=== PATIENT | female | born 1945 | race Caucasian/White ===

== ENCOUNTER 2021-01-26 19:03 | Emergency (ER) | payer OTHER, MEDICAID ==
[~2021-01-26] VITALS: Ht 165.1 cm; Wt 90.7 kg
[2021-01-26 19:10] VITALS: BP 168/68
[2021-01-26 20:28] LABS: BASOPHILS # (AUTO) 0.1 K/uL (0.00-0.22); BASOPHILS % (AUTO) 1.2 % (0.0-2.0); EOSINOPHILS # (AUTO) 0.1 K/uL (0-0.4); EOSINOPHILS % (AUTO) 1.6 % (0.0-4.0); HEMATOCRIT 39.8 % (36-48); HEMOGLOBIN 13.4 g/dL (12.0-16.0); LYMPHOCYTES # (AUTO) 1.6 K/uL (2.5-16.5); LYMPHOCYTES % (AUTO) 31.1 % (20.5-51.1); MEAN CORPUSCULAR HEMOGLOBIN 30 pg (27-31); MEAN CORPUSCULAR HGB CONC 34 g/dL (33-37); MEAN CORPUSCULAR VOLUME 90.2 fL (80-94); MONOCYTES # (AUTO) 0.6 K/uL (0.8-1.0); MONOCYTES % (AUTO) 11.8 % (1.7-9.3); NEUTROPHILS # (AUTO) 2.7 K/uL (1.8-7.7); NEUTROPHILS % (AUTO) 54.3 % (42.2-75.2); PLATELET COUNT (AUTO) 277 K/uL (140-450); RED BLOOD CELL COUNT(AUTO) 4.42 MIL/uL (4.20-5.40); RED CELL DISTRIBUTION WIDTH 14.1 % (11.6-13.7)
[2021-01-26 20:40] LABS: ALBUMIN 3.4 g/dL (3.4-5.0); ANION GAP 11.9 (8-16); ASPARTATE AMINOTRANSFERASE 15 U/L (15-37); CARBON DIOXIDE 30.5 mmol/L (21-32); CHLORIDE 107 mmol/L (98-107); CREATININE 0.9 mg/dL (0.6-1.3); GLUCOSE 107 mg/dL (74-106); POTASSIUM 4.4 mmol/L (3.5-5.1); SODIUM SERUM 145 mmol/L (136-145); TOTAL BILIRUBIN 0.2 mg/dL (0.0-1.0); UREA NITROGEN, BLOOD 19 mg/dL (7-18)
--- NOTE | 2021-01-26 20:40 | NUR ---
TO ER BED 05
--- NOTE | 2021-01-26 20:50 | NUR ---
PT BIBA ALS FROM [facility] FOR C/C CHEST PAIN X 1 HOUR AGO. PER [facility], PT REPORTED TO FACILITY THAT SHE WAS EXPERIENCING CHEST PAIN 5/10 TO THE LEFT CHEST, NON RADIATING. PER [facility] 12 LEAD EKG NSR HR 81. VSS: BP 168/68, HR 78, O2 98% ROOM AIR, TEMP 98.0. PER FACILITY, PT CURRENTLY COVID NEGATIVE. PT CURRENTLY REPORTS CHEST PAIN HAS SUBSIDED AND DENIES PAIN TO ANY PART OF THE BODY. NO NOTED RESPIRATORY DISTRESS. DENIES N/V/D, FEVER, CHILLS, COUGH. MED HX: DVT LEFT LEG, ELEVATED CHOLESTEROL, ALZHEIMERS, OSTEOPOROSIS, GLAUCOMA ALLERGIES: NKA
--- NOTE | 2021-01-26 22:20 | NUR ---
PT STATED SHE WOULD LIKE TO LEAVE. SONJA DOMÍNGUEZ MADE AWARE, STSTAED HE WOULD LIKE TO DO ANOTHER TROPONIN LEVEL. PT DENIED STATED "NO I WANT TO GET TO MY BED".
[2021-01-27 01:36] VITALS: BP 168/68
--- NOTE | 2021-01-27 01:36 | NUR ---
Patient discharged with v/s stable. Written and verbal after care instructions given and explained. Patient verbalized understanding. Ambulatory with steady gait. All questions addressed prior to discharge. Advised to follow up with PMD. Taxi voucher given. ETA 1 hr.
== END 2021-01-27 01:36 | disposition home or self-care (01) ==
LOC: MED 19:03
DX: R07.9 Chest pain, unspecified (principal); E78.00 Pure hypercholesterolemia, unspecified
CPT/HCPCS: 36415; 71045; 80053; 84484; 85025; 93005; 99285

== ENCOUNTER 2021-05-01 09:33 | Emergency (ER) | payer OTHER, MEDICAID ==
[~2021-05-01] VITALS: Ht 165.1 cm; Wt 122.5 kg
--- NOTE | 2021-05-01 09:33 | NUR ---
SUSANA ALS TO ER BED 9
[2021-05-01 09:40] VITALS: BP 144/77
--- NOTE | 2021-05-01 09:54 | NUR ---
LAB AT BEDSIDE
--- NOTE | 2021-05-01 09:54 | NUR ---
XRAY AT BEDSIDE
--- NOTE | 2021-05-01 10:00 | NUR ---
75 Y/O FEMALE BIBA FROM [facility] C/O MID CHEST PAIN X 2 HOURS AGO. PER EMS GAVE ASPIRIN 325 MG 1 TAB PO. PT STATES PAIN 3/10. O2 SAT 100% AT THIS TIME. DENIES N/V/D; SKIN IS PINK/WARM/DRY; AAOX4 WITH EVEN AND STEADY GAIT; LUNGS CLEAR BL; HR EVEN AND REGULAR; VSS; PATIENT POSITIONED FOR COMFORT; HOB ELEVATED; BEDRAILS UP X2; BED DOWN. ER MD MADE AWARE OF PT STATUS. PMH: GLAUCOMA RIGHT EYE NKA
[2021-05-01 10:13] LABS: EOSINOPHILS # (AUTO) 0.1 K/uL (0-0.4); EOSINOPHILS % (AUTO) 2.3 % (0.0-4.0); HEMATOCRIT 37.1 % (36-48); HEMOGLOBIN 12.6 g/dL (12.0-16.0); LYMPHOCYTES # (AUTO) 1.4 K/uL (2.5-16.5); MEAN CORPUSCULAR HEMOGLOBIN 31 pg (27-31); MEAN CORPUSCULAR HGB CONC 34 g/dL (33-37); MEAN CORPUSCULAR VOLUME 90.7 fL (80-94); MONOCYTES # (AUTO) 0.5 K/uL (0.8-1.0); MONOCYTES % (AUTO) 11.7 % (1.7-9.3); NEUTROPHILS # (AUTO) 2.1 K/uL (1.8-7.7); PLATELET COUNT (AUTO) 281 K/uL (140-450); RED BLOOD CELL COUNT(AUTO) 4.08 MIL/uL (4.20-5.40); RED CELL DISTRIBUTION WIDTH 13.5 % (11.6-13.7); WHITE BLOOD COUNT (AUTO) 4.2 K/uL (4.8-10.8)
[2021-05-01 10:32] LABS: ALBUMIN 3.1 g/dL (3.4-5.0); ANION GAP 9.7 (8-16); ASPARTATE AMINOTRANSFERASE 17 U/L (15-37); CARBON DIOXIDE 27.7 mmol/L (21-32); CHLORIDE 107 mmol/L (98-107); CREATININE 0.9 mg/dL (0.6-1.3); GLUCOSE 92 mg/dL (74-106); POTASSIUM 4.4 mmol/L (3.5-5.1); SODIUM SERUM 140 mmol/L (136-145); TOTAL BILIRUBIN 0.3 mg/dL (0.0-1.0); UREA NITROGEN, BLOOD 20 mg/dL (7-18)
[2021-05-01] MEDS ORDERED: ALUMINUM HYD/MAG/SIMETHICONE 30 ML UDC PO ONE (10:50)
[2021-05-01] MEDS ORDERED: OMEP-278 PO (10:58)
--- NOTE | 2021-05-01 11:18 | NUR ---
PT STATING "I HAVE TO GO BACK, I WANT LUNCH." OFFERED PT A LUNCH TRAY. PT REFUSING OFFER. REORIENTED PT BACK TO BED. PT WALKED OUT OF ER, CALLED SECURITY.
--- NOTE | 2021-05-01 11:19 | NUR ---
PATIENT ELOPED FROM FACILITY. DISCHARGE INSTRUCTIONS NOT GIVEN TO PATIENT. DR. LEACH NOTIFIED.
[2021-05-01 11:25] VITALS: BP 144/77
--- NOTE | 2021-05-01 11:25 | NUR ---
CALLED [facility], FACILITY SPOKE WITH JOVI STATED, "SHE JUST GOT HERE." PT ARRIVED TO [facility]
== END 2021-05-01 11:25 | disposition home or self-care (01) ==
LOC: MED 09:33
DX: K30 Functional dyspepsia (principal); F03.90 Unspecified dementia, unspecified severity, without behavioral disturbance, psychotic disturbance, mood disturbance, and anxiety; Z79.899 Other long term (current) drug therapy
CPT/HCPCS: 36415; 71045; 80053; 83690; 83880; 84484; 85025; 93005; 99285; Q0092

== ENCOUNTER 2022-04-08 13:33 | Emergency (ER) | payer OTHER, MEDICAID ==
[~2022-04-08] VITALS: Ht 162.6 cm; Wt 75.3 kg
[~2022-04-08 13:33] MED LIST: OMEP-278 PO
[2022-04-08 13:39] VITALS: BP 155/78
--- NOTE | 2022-04-08 15:19 | NUR ---
back from rad to annika
--- NOTE | 2022-04-08 15:35 | NUR ---
TO ER BED 4
[2022-04-08 15:42] LABS: BASOPHILS % (AUTO) 0.9 % (0.0-2.0); EOSINOPHILS # (AUTO) 0.1 K/uL (0-0.4); EOSINOPHILS % (AUTO) 1.6 % (0.0-4.0); HEMATOCRIT 39.8 % (36-48); HEMOGLOBIN 13.4 g/dL (12.0-16.0); LYMPHOCYTES # (AUTO) 1.7 K/uL (2.5-16.5); LYMPHOCYTES % (AUTO) 33.2 % (20.5-51.1); MEAN CORPUSCULAR HEMOGLOBIN 31 pg (27-31); MEAN CORPUSCULAR HGB CONC 34 g/dL (33-37); MEAN CORPUSCULAR VOLUME 91.4 fL (80-94); MONOCYTES # (AUTO) 0.7 K/uL (0.8-1.0); MONOCYTES % (AUTO) 13.7 % (1.7-9.3); NEUTROPHILS # (AUTO) 2.5 K/uL (1.8-7.7); NEUTROPHILS % (AUTO) 50.6 % (42.2-75.2); PLATELET COUNT (AUTO) 294 K/uL (140-450); RED BLOOD CELL COUNT(AUTO) 4.35 MIL/uL (4.20-5.40); RED CELL DISTRIBUTION WIDTH 14.2 % (11.6-13.7)
[2022-04-08] MEDS ORDERED: DICYCLOMINE HCL LIQUID 20 MG, ALUMINUM HYD/MAG/SIMETHICONE 30 ML, LIDOCAINE VISCOUS 2% ... PO ONE ×6 (15:50)
[2022-04-08] MEDS ORDERED: ALUMINUM HYD/MAG/SIMETHICONE 30 ML UDC ONE (15:51)
[2022-04-08] MEDS ORDERED: DICYCLOMINE HCL LIQUID 10 MG/5 ML UDC ONE (15:51)
[2022-04-08 16:30] LABS: ALBUMIN 3.1 g/dL (3.4-5.0); ASPARTATE AMINOTRANSFERASE 15 U/L (15-37); CHLORIDE 106 mmol/L (98-107); CREATININE 0.9 mg/dL (0.6-1.3); GLUCOSE 97 mg/dL (74-106); SODIUM SERUM 142 mmol/L (136-145); TOTAL BILIRUBIN 0.2 mg/dL (0.0-1.0); UREA NITROGEN, BLOOD 19 mg/dL (7-18)
[2022-04-08 16:45] LABS: PROTHROMBIN TIME 9.6 secs (10.8-13.4)
[2022-04-08 17:10] VITALS: BP 127/70
--- NOTE | 2022-04-08 17:10 | NUR ---
Patient discharged with v/s stable. Written and verbal after care instructions given and explained. Patient verbalized understanding. Ambulatory with steady gait. All questions addressed prior to discharge. Advised to follow up with PMD.
--- NOTE | 2022-04-08 19:00 | NUR ---
CALLED TO GIVEN REPORT N/A.
== END 2022-04-08 17:10 | disposition home or self-care (01) ==
LOC: MED 13:33
DX: K20.80 Other esophagitis without bleeding (principal); I25.10 Atherosclerotic heart disease of native coronary artery without angina pectoris; F03.90 Unspecified dementia, unspecified severity, without behavioral disturbance, psychotic disturbance, mood disturbance, and anxiety
CPT/HCPCS: 36415; 71045; 80053; 81002; 84484; 85025; 85610; 85730; 93005; 99285; Q0092

== ENCOUNTER 2022-07-30 10:15 | Emergency (ER) | payer OTHER, MEDICAID ==
[~2022-07-30] VITALS: Ht 172.7 cm; Wt 72.6 kg
[2022-07-30 10:19] VITALS: BP 146/53
--- NOTE | 2022-07-30 10:27 | NUR ---
PT SUSANA BERGER, TAKEN TO ER BED VIA [facility]
--- NOTE | 2022-07-30 10:43 | NUR ---
ASSUMED PATIENT CARE. PATIENT NOTED TO BE CONFUSED. PATIENT WAS REQUESTED TO GIVE A URINE SAMPLE BUT URINE CUP WAS FOUND IN THE BATHROOM TRASH CAN INSTEAD. PLACED BACK IN [facility], PATIENT NOW SAYING THAT SHE CAN'T URINATE.
--- NOTE | 2022-07-30 11:08 | NUR ---
PER PORTILLO AT [facility], PT IS CURRENTLY ON SULFA ATBX FOR UTI AND HAS TWO DAYS LEFT
--- NOTE | 2022-07-30 11:45 | NUR ---
PATIENT WAS NOT IN GURNEY/ROOM UPON CONDUCTING SAFETY CHECK. SECURITY PERSONNEL ALERTED. WILL DO A [facility] REVIEW TO INVESTIGATE FURTHER.
--- NOTE | 2022-07-30 12:14 | NUR ---
PER PATIENT WAS VISUALIZED WALKING BACK TO HER FACILITY ACROSS THE STRE[address]. PER BALDO, SHE SPOKE TO PATIENT'S DAUGHTER WHO AGREED TO TAKE HER BACK AND SIT WITH HER IN THE ER.
--- NOTE | 2022-07-30 12:35 | NUR ---
PATIENT ELOPED FROM FACILITY. DISCHARGE INSTRUCTIONS NOT GIVEN TO PATIENT. DR. MORENO NOTIFIED.
[2022-07-30] MEDS ORDERED: ASPI-1749 PO (20:54)
[2022-07-30] MEDS ORDERED: DONE10TA10 PO (20:54)
[2022-07-30] MEDS ORDERED: XALOS OP (20:54)
[2022-07-30] MEDS ORDERED: [UNRECOGNIZED DRUG - CODE] PO (20:54)
[2022-07-30] MEDS ORDERED: DORZ10SO OP (20:54)
[2022-07-30] MEDS ORDERED: ACET325C8 PO (20:54)
[2022-07-30] MEDS ORDERED: BRIM5SOL2 OP (20:54)
[2022-07-30] MEDS ORDERED: FAMO-90 PO (20:54)
[2022-07-30] MEDS ORDERED: ESCI10TA PO (20:54)
[2022-07-30] MEDS ORDERED: CAPS1ADH5 TP (20:55)
[2022-07-30] MEDS ORDERED: MIRABULK PO (20:55)
[2022-07-30] MEDS ORDERED: LOSA25TA43 PO (20:55)
[2022-07-30] MEDS ORDERED: LORA10TA19 PO (20:55)
[2022-07-30] MEDS ORDERED: PROP1DRO5 OP (20:55)
[2022-07-30] MEDS ORDERED: MEMA5TAB PO (20:55)
[2022-07-30] MEDS ORDERED: PRAV40TA3 PO (20:55)
[2022-07-30] MEDS ORDERED: MELA10CA PO (20:55)
[2022-08-02] MEDS ORDERED: NITR100C7 PO (09:27)
== END 2022-07-30 12:35 | disposition left against medical advice (07) ==
LOC: MED 10:15
DX: R82.998 Other abnormal findings in urine (principal); F03.90 Unspecified dementia, unspecified severity, without behavioral disturbance, psychotic disturbance, mood disturbance, and anxiety; Z79.899 Other long term (current) drug therapy
CPT/HCPCS: 99283

== ENCOUNTER 2022-10-03 10:13 | Emergency (ER) | payer OTHER, MEDICAID ==
[~2022-10-03] VITALS: Ht 165.1 cm; Wt 63.5 kg
[~2022-10-03 10:13] MED LIST changes: +ACET325C8 PO; +ASPI-1749 PO; +BRIM5SOL2 OP; +CAPS1ADH5 TP; +DONE10TA10 PO; +DORZ10DR9 OP; +ESCI10TA PO; +FAMO-90 PO; +LORA10TA19 PO; +LOSA25TA43 PO; +MELA10CA PO; +MEMA5TAB PO; +MIRABULK PO; +NITR100C7 PO; -OMEP-278 PO; +PRAV40TA3 PO; +PROP1DRO5 OP; +XALOS OP; +[UNRECOGNIZED DRUG - CODE] PO
[2022-10-03 10:17] VITALS: BP 152/72
--- NOTE | 2022-10-03 10:47 | NUR ---
CONCUR W/ TRIAGE ASSESMENT. 4 PT RESTRAINTS UTILIZED FOR PT SAFETY. COMFORT MEASURES AND SUPPORTIVE CARE INITIATED. PT HAS PMH: DEMENTIA. UNABLE TO PROCESS.
--- NOTE | 2022-10-03 10:59 | NUR ---
SEEN BY DR. SHEARER. ENCOURAGED PT TO PROVIDE URINE IN BEDPAN.
--- NOTE | 2022-10-03 11:33 | NUR ---
AFTER MULTIPLE ATTEMPTS TO ELECIT COOPERATION W/ VOIDING VIA BED JORDAN. ST CATH URINE OBTAINED W/ ASSISTANCE OF RN X2. PT COOPERATED W/ ENCOURAGEMENT. URINE OBTAINED AND SENT TO LAB.
--- NOTE | 2022-10-03 13:10 | NUR ---
PT REFUSING ALL VITAL SIGNS CHECKS. PT NOTED TO YELL OBSCENITIES AND BECOME FOUL IN DISPOSITION TOWARD ALL HEALTHCARE STAFF.
[2022-10-03 13:42] LABS: APPEARANCE,URINE CLEAR (CLEAR); BILIRUBIN,URINE NEGATIVE (NEGATIVE); BLOOD, URINE NEGATIVE (NEGATIVE); COLOR,URINE YELLOW (YELLOW); LEUKOCYTE ESTERASE ,URINE NEGATIVE (NEGATIVE); NITRITE, URINE NEGATIVE (NEGATIVE); UGLUCOSE NEGATIVE (NEGATIVE)
[2022-10-03] MEDS ORDERED: CEPH-588 PO (13:47)
[2022-10-03] MEDS ORDERED: FLUC200T PO (13:47)
--- NOTE | 2022-10-03 13:53 | NUR ---
GAVE REPORT TO PORTILLO AT [facility] OF PATIENT'S DC STATUS. PENDING TRANSPORT BACK TO FACILITY
[2022-10-03 13:55] VITALS: BP 141/78
--- NOTE | 2022-10-03 13:55 | NUR ---
Patient discharged with v/s stable. Written and verbal after care instructions given and explained. Patient alert, oriented and verbalized understanding of instructions. Ambulatory with by caregiver. All questions addressed prior to discharge. ID band removed. Patient advised to follow up with PMD. Rx given. Patient educated on indication of medication including possible reaction and side effects. Opportunity to ask questions provided and answered.
== END 2022-10-03 13:55 ==
LOC: MED 10:13
DX: L30.4 Erythema intertrigo (principal); B37.2 Candidiasis of skin and nail; F03.90 Unspecified dementia, unspecified severity, without behavioral disturbance, psychotic disturbance, mood disturbance, and anxiety; Z86.39 Personal history of other endocrine, nutritional and metabolic disease; Z79.899 Other long term (current) drug therapy; Z79.2 Long term (current) use of antibiotics; Z79.82 Long term (current) use of aspirin
CPT/HCPCS: 81003; 99283

== ENCOUNTER 2022-10-27 16:36 | Inpatient (IN) | payer OTHER, MEDICAID ==
[~2022-10-27] VITALS: Ht 167.6 cm; Wt 94.8 kg
[~2022-10-27 16:36] MED LIST changes: +CEPH-588 PO; +FLUC200T PO
[2022-10-27 17:05] VITALS: BP 139/85
--- NOTE | 2022-10-27 17:19 | NUR ---
TO TX ROOM. PREP FOR ERMD EVAL. COMFORT MEASURES AND SUPPORTIVE CARE INITIATED. DAUGHTER AT BS. JENNIFER LEACH AT BS.
--- NOTE | 2022-10-27 17:41 | NUR ---
76 YEARS OLD FEMALE PRESENTS TO ER WITH DAUGHTER C/O SHAKINESS NO SOB NO CP.
[2022-10-27] MEDS ORDERED: NACL 0.9% 1,000 ML IV ONE ×3 (18:05→23:45)
--- NOTE | 2022-10-27 18:25 | NUR ---
PATIENT WENT TO CT.
[2022-10-27 18:33] LABS: BASOPHILS % (AUTO) 0.9 % (0.0-2.0); EOSINOPHILS # (AUTO) 0.1 K/uL (0-0.4); EOSINOPHILS % (AUTO) 2.3 % (0.0-4.0); HEMATOCRIT 37.3 % (36-48); HEMOGLOBIN 12.4 g/dL (12.0-16.0); LYMPHOCYTES # (AUTO) 1.2 K/uL (2.5-16.5); LYMPHOCYTES % (AUTO) 26.6 % (20.5-51.1); MEAN CORPUSCULAR HEMOGLOBIN 30 pg (27-31); MEAN CORPUSCULAR HGB CONC 33 g/dL (33-37); MEAN CORPUSCULAR VOLUME 90.5 fL (80-94); MONOCYTES # (AUTO) 0.4 K/uL (0.8-1.0); MONOCYTES % (AUTO) 9.8 % (1.7-9.3); NEUTROPHILS # (AUTO) 2.8 K/uL (1.8-7.7); NEUTROPHILS % (AUTO) 60.4 % (42.2-75.2); PLATELET COUNT (AUTO) 220 K/uL (140-450); RED BLOOD CELL COUNT(AUTO) 4.12 MIL/uL (4.20-5.40); RED CELL DISTRIBUTION WIDTH 13.7 % (11.6-13.7); WHITE BLOOD COUNT (AUTO) 4.5 K/uL (4.8-10.8)
[2022-10-27 18:49] LABS: ASPARTATE AMINOTRANSFERASE 17 U/L (15-37); CARBON DIOXIDE 25.3 mmol/L (21-32); CHLORIDE 108 mmol/L (98-107); CREATININE 1.4 mg/dL (0.6-1.3); GLUCOSE 140 mg/dL (74-106); POTASSIUM 4.3 mmol/L (3.5-5.1); SODIUM SERUM 143 mmol/L (136-145); TOTAL BILIRUBIN 0.3 mg/dL (0.0-1.0); UREA NITROGEN, BLOOD 15 mg/dL (7-18)
--- NOTE | 2022-10-27 19:17 | NUR ---
REPORT ENDORSED TO NURSE MITCH ALL QUESTIONS ANSWERED. VSS. NO PAIN
[2022-10-27 19:29] LABS: APPEARANCE,URINE CLEAR (CLEAR); BILIRUBIN,URINE NEGATIVE (NEGATIVE); BLOOD, URINE NEGATIVE (NEGATIVE); COLOR,URINE YELLOW (YELLOW); LEUKOCYTE ESTERASE ,URINE NEGATIVE (NEGATIVE); NITRITE, URINE NEGATIVE (NEGATIVE); PH,URINE 6.5 (5.0-9.0); UGLUCOSE NEGATIVE (NEGATIVE)
--- NOTE | 2022-10-27 20:35 | NUR ---
ER DR. Mccoy by bedside at this time.
--- NOTE | 2022-10-27 20:47 | NUR ---
Pt assisted to restroom, accompanied by daughter. Gait steady.
[2022-10-27] MEDS ORDERED: VANCOMYCIN 1,000 MG in DEXTROSE 5% 250 ML IV ONE (21:45)
[2022-10-27] MEDS ORDERED: CEFEPIME 2,000 MG in DEXTROSE 5% 100 ML IV ONE (21:45)
[2022-10-27] MEDS ORDERED: CEFEPIME 2,000 MG VIAL IV ONE (22:30)
[2022-10-27] MEDS ORDERED: QUEtiapine FUMARATE 25 MG TAB PO ONE (22:30)
[2022-10-27] MEDS ORDERED: POTASSIUM CHLORIDE 10 MEQ TABER PO PRN (23:25)
[2022-10-27] MEDS ORDERED: ZOLPIDEM 5 MG TAB PO PRN (23:25)
[2022-10-27] MEDS ORDERED: ACETAMINOPHEN 325 MG TAB PO PRN (23:25)
[2022-10-27] MEDS ORDERED: HYDROcodone/APAP 7.5/325 MG 1 TAB PO PRN (23:25)
[2022-10-27] MEDS: NACL 0.9% 1,000 ML IV SCH (23:25)
[2022-10-27] MEDS ORDERED: guaiFENesin DM 200/20 MG-10 ML 10 ML UDC PO PRN (23:25)
[2022-10-27] MEDS ORDERED: DOCUSATE SODIUM 100 MG GELCAP PO PRN (23:25)
[2022-10-27] MEDS ORDERED: ONDANSETRON 4 MG/2 ML VIAL IM/IVP PRN (23:25)
--- NOTE | 2022-10-27 23:31 | NUR ---
MED RECONCILE COMPLETED
[2022-10-27] MEDS ORDERED: VANCOMYCIN PER PHARMACY MC PRN (23:35)
--- NOTE | 2022-10-27 23:56 | NUR ---
Report given to Errol MEYERS
--- NOTE | 2022-10-28 00:10 | NUR ---
[facility], PATIENT IS ALERT WITH CONFUSION, ABLE TO AMBULATE WITH ASSISTANCE. ADMITTED DUE TO SOB AND ALOC, PIV INTACT AND PATENT. WILL CONTINUE TO MONITOR
[2022-10-28] MEDS ORDERED: VANCOMYCIN 1,000 MG VIAL ONE (00:42)
[2022-10-28 04:00] VITALS: BP 139/60
[2022-10-28 07:05] LABS: BASOPHILS % (AUTO) 0.4 % (0.0-2.0); EOSINOPHILS % (AUTO) 0.3 % (0.0-4.0); HEMATOCRIT 37.7 % (36-48); HEMOGLOBIN 12.4 g/dL (12.0-16.0); LYMPHOCYTES # (AUTO) 1.1 K/uL (2.5-16.5); LYMPHOCYTES % (AUTO) 11.4 % (20.5-51.1); MEAN CORPUSCULAR HEMOGLOBIN 30 pg (27-31); MEAN CORPUSCULAR HGB CONC 33 g/dL (33-37); MEAN CORPUSCULAR VOLUME 90.3 fL (80-94); MONOCYTES # (AUTO) 0.8 K/uL (0.8-1.0); MONOCYTES % (AUTO) 8.8 % (1.7-9.3); NEUTROPHILS # (AUTO) 7.6 K/uL (1.8-7.7); NEUTROPHILS % (AUTO) 79.1 % (42.2-75.2); PLATELET COUNT (AUTO) 199 K/uL (140-450); RED BLOOD CELL COUNT(AUTO) 4.18 MIL/uL (4.20-5.40); RED CELL DISTRIBUTION WIDTH 13.8 % (11.6-13.7); WHITE BLOOD COUNT (AUTO) 9.6 K/uL (4.8-10.8)
[2022-10-28 07:31] LABS: ANION GAP 11.8 (8-16); CARBON DIOXIDE 25.3 mmol/L (21-32); CHLORIDE 112 mmol/L (98-107); GLUCOSE 120 mg/dL (74-106); POTASSIUM 4.1 mmol/L (3.5-5.1); SODIUM SERUM 145 mmol/L (136-145); UREA NITROGEN, BLOOD 17 mg/dL (7-18)
--- NOTE | 2022-10-28 07:46 | NUR ---
GOT REPORT FROM THE NIGHT NURSE, PT AWAKE JUST USED THE COMMODE , NO SOB.[id number]
[2022-10-28 08:00] VITALS: BP 128/61
[2022-10-28] MEDS: PANTOPRAZOLE 40 MG TABEC PO SCH (08:58)
[2022-10-28] MEDS: PIPERACILLIN/TAZOBACTAM 3.375 GM in DEXTROSE 5% 50 ML IV SCH ×3 (09:01→16:55)
[2022-10-28] MEDS ORDERED: POLYETHYLENE GLYCOL 17 GM/PKT PO PRN ×2 (09:55→11:46)
[2022-10-28 16:00] VITALS: BP 143/65
[2022-10-28] MEDS: NACL 0.9% 1,000 ML IV SCH (16:05)
[2022-10-28] MEDS ORDERED: DONEPEZIL 10 MG TAB PO SCH (17:00)
--- NOTE | 2022-10-28 19:26 | NUR ---
GAVE REPORT TO THE NIGHT NURSE, PT DEMETRIO.[id number]
--- NOTE | 2022-10-28 19:30 | NUR ---
RECEIVED REPORT FROM DAY SHIFT NURSE AMBER AND ORIENTING NURSE RANDEE FOR CONTINUITY OF CARE. PATIENT IS A&O X2, CONFUSED. PATIENT IS ON ROOM AIR, BREATHING IS NORMAL WITH SYMMETRICAL RISE AND FALL OF CHEST. IV IS A 24G R HAND RUNNING NS AT 60. PATIENT IS LYING IN SEMI-FOWLERS POSITION, AWAKE. BED IS IN LOWEST POSITION, WHEELS LOCKED, CALL LIGHT IN PLACE. WILL CONTINUE TO OBSERVE PATIENT.
[2022-10-28 20:00] VITALS: BP 152/56
--- NOTE | 2022-10-29 00:50 | NUR ---
PATIENT HAS GOTTEN UP MULTIPLE TIMES TO USE THE COMMODE AT HER BEDSIDE. PATIENT IS STILL CONFUSED AND NEEDS REORIENTING AND ASSISTANCE TO GET BACK INTO BED. PATIENT IS GOING SCANT AMOUNTS OF STOOL WHICH IS LIGHT BROWN IN COLOR. PATIENT IS SLEEPING IN BED. BED ALARM IS ON. BREATHING IS NORMAL WITH SYMMETRICAL RISE AND FALL OF CHEST. WILL CONTINUE TO OBSERVE PATIENT.
[2022-10-29] MEDS ORDERED: VANCOMYCIN 1.25GM PREMIX 250 ML IV SCH (01:00)
[2022-10-29] MEDS: NACL 0.9% 1,000 ML IV SCH (01:42)
[2022-10-29 04:00] VITALS: BP 140/58
--- NOTE | 2022-10-29 05:00 | NUR ---
PATIENT SLEPT OFF AND ON THROUGHOUT THE NIGHT, GETTING UP FREQUENTLY TO USE THE COMMODE (4 VOIDS, 6 BOWEL MOVEMENTS). PATIENT'S IV IS PATENT AND STILL RUNNING. PATIENT STILL GETS CONFUSED NEEDING ASSISTANCE TO GET BACK INTO BED WITHOUT GETTING TANGLED UP IN HER IV. PATIENT STARTED WIPING HERSELF DURING THE NIGHT WITHOUT ASSISTANCE, AND WANTED TO PUT ON HOSPITAL UNDERWEAR (UNDERWEAR WAS PUT ON WITH ASSISTANCE BECAUSE PATIENT KEPT GETTING IV LINE TANGLED IN BETWEEN LEGS AND UNDERWEAR. BM IS STARTING TO LOOK BIGGER AND MORE FORMED FROM EARLIER IN THE NIGHT. PATIENT IS SLEEPING, BREATHING IS NORMAL WITH SYMMETRICAL RISE AND FALL OF CHEST. WILL CONTINUE TO OBSERVE PATIENT.
[2022-10-29 06:52] LABS: ANION GAP 12.3 (8-16); CARBON DIOXIDE 23.3 mmol/L (21-32); CHLORIDE 110 mmol/L (98-107); CREATININE 0.8 mg/dL (0.6-1.3); GLUCOSE 91 mg/dL (74-106); POTASSIUM 3.6 mmol/L (3.5-5.1); SODIUM SERUM 142 mmol/L (136-145); UREA NITROGEN, BLOOD 12 mg/dL (7-18)
[2022-10-29 06:57] LABS: BASOPHILS # (AUTO) 0.1 K/uL (0.00-0.22); BASOPHILS % (AUTO) 0.8 % (0.0-2.0); EOSINOPHILS # (AUTO) 0.1 K/uL (0-0.4); EOSINOPHILS % (AUTO) 1.2 % (0.0-4.0); HEMATOCRIT 35.8 % (36-48); HEMOGLOBIN 12.3 g/dL (12.0-16.0); LYMPHOCYTES # (AUTO) 1.6 K/uL (2.5-16.5); LYMPHOCYTES % (AUTO) 18.6 % (20.5-51.1); MEAN CORPUSCULAR HEMOGLOBIN 30 pg (27-31); MEAN CORPUSCULAR HGB CONC 34 g/dL (33-37); MEAN CORPUSCULAR VOLUME 88.5 fL (80-94); MONOCYTES % (AUTO) 11.2 % (1.7-9.3); NEUTROPHILS # (AUTO) 5.9 K/uL (1.8-7.7); NEUTROPHILS % (AUTO) 68.2 % (42.2-75.2); PLATELET COUNT (AUTO) 226 K/uL (140-450); RED BLOOD CELL COUNT(AUTO) 4.05 MIL/uL (4.20-5.40); RED CELL DISTRIBUTION WIDTH 13.9 % (11.6-13.7); WHITE BLOOD COUNT (AUTO) 8.7 K/uL (4.8-10.8)
--- NOTE | 2022-10-29 07:21 | NUR ---
ENDORSED TO DAY SHIFT NURSE AMBER FOR CONTINUITY OF CARE. PATIENT IS STABLE.
--- NOTE | 2022-10-29 07:22 | NUR ---
RECEIVED ENDORSEMENT FROM DATA REVIEW SPECIALIST FOR CONTINUITY OF CARE. PT IS ASLEEP, AWAKEN BY NAME. CALL LIGHT WITHIN REACH. WILL CONTINUE TO MONITOR.
[2022-10-29 08:00] VITALS: BP 131/6
[2022-10-29] MEDS: ASPIRIN 81 MG TAB.CHEW PO SCH ×2 (08:27→08:38)
[2022-10-29] MEDS: PANTOPRAZOLE 40 MG TABEC PO SCH (08:29)
[2022-10-29] MEDS ORDERED: ESCITALOPRAM 20 MG TAB PO SCH (09:00)
[2022-10-29] MEDS ORDERED: MEMANTINE 10 MG TAB PO SCH (09:00)
[2022-10-29] MEDS ORDERED: LOSARTAN 25 MG TAB PO SCH (09:00)
--- NOTE | 2022-10-29 10:31 | NUR ---
PATIENT HAS BEEN SCREENED AND CATEGORIZED LOW NUTRITION RISK. PATIENT WILL BE SEEN WITHIN 7 DAYS OF ADMISSION. 11/03/[address]
[2022-10-29 11:57] VITALS: BP 131/66
--- NOTE | 2022-10-29 12:59 | NUR ---
PT DISCHARGED, [facility] PICKED PT UP. CALLED [facility] FOR ENDORSEMENT AND CONTINUITY OF CARE. CALLED DAUGHTER AND INFORMED OF THE UPDATE ON THE PT. Addendum: 10/29/22 at 1308 by MURIEL VELEZ RN PT DISCHARGED, [facility]. CALLED [facility] FOR ENDORSEMENT AND CONTINUITY OF CARE. CALLED DAUGHTER AND INFORMED OF THE UPDATE ON THE PT. TOOK THE IV OUT.
[2022-10-29] MEDS ORDERED: PIPERACILLIN/TAZOBACTAM 3.375 GM in DEXTROSE 5% 50 ML IV SCH (13:00)
== END 2022-10-29 12:55 | DRG 56 ==
LOC: MED 16:36 → MTU 23:23
PROVIDERS: ADMIT Student in an Organized Health Care Education/Training Program; ATTEND Student in an Organized Health Care Education/Training Program
DX: G30.9 Alzheimer's disease, unspecified (principal); G93.41 Metabolic encephalopathy; N17.0 Acute kidney failure with tubular necrosis; E87.20 Acidosis, unspecified; E44.0 Moderate protein-calorie malnutrition; E78.5 Hyperlipidemia, unspecified; I10 Essential (primary) hypertension; Z20.822 Contact with and (suspected) exposure to COVID-19; F02.80 Dementia in other diseases classified elsewhere, unspecified severity, without behavioral disturbance, psychotic disturbance, mood disturbance, and anxiety; Z79.899 Other long term (current) drug therapy; Z90.49 Acquired absence of other specified parts of digestive tract; Z79.82 Long term (current) use of aspirin; Z79.1 Long term (current) use of non-steroidal anti-inflammatories (NSAID); Z68.33 Body mass index [BMI] 33.0-33.9, adult
CPT/HCPCS: 36415; 70450; 71045; 74022; 80048; 80053; 81003; 82550; 83605; 83880; 84484; 85025; 87040; 87081; 93005; 96361; 96365; 99291; J0692; J1644; J2543; J3370; J3372; J7060

== ENCOUNTER 2022-11-07 13:28 | Emergency (ER) | payer OTHER, MEDICAID ==
[~2022-11-07] VITALS: Ht 165.1 cm; Wt 70.3 kg
[~2022-11-07 13:28] MED LIST changes: -CEPH-588 PO; -NITR100C7 PO
--- NOTE | 2022-11-07 13:33 | NUR ---
76 yo/f oli from [facility] w c/o fall after losing balance in the bathroom and hitting back of head, pt c/o headache and neck pain /10. pt denies chest pain, sob, fevers, chills, n/v/d, loc, dizziness or other symptoms. pt aox3 (baseline per [facility]). pt reports she has not taken her aspirin but is unsure of last time she took it. pmh:htn, anxiety, dementia (see chart) allergies: penicillins
--- NOTE | 2022-11-07 13:33 | NUR ---
Note undone in EDM - 11/07/22 at 1347 by [id number] 76 yo/f oli from [facility] w c/o fall after losing balance in the bathroom and hitting back of head, pt c/o headache /10. pt denies chest pain, sob, fevers, chills, n/v/d, dizziness or other symptoms. pt aox3 (baseline per [facility]). pmh:htn, anxiety, dementia (see chart) allergies: penicillins
[2022-11-07 13:36] VITALS: BP 122/40
[2022-11-07 14:59] LABS: BASOPHILS % (AUTO) 0.7 % (0.0-2.0); EOSINOPHILS # (AUTO) 0.1 K/uL (0-0.4); HEMATOCRIT 37.2 % (36-48); HEMOGLOBIN 12.5 g/dL (12.0-16.0); LYMPHOCYTES # (AUTO) 0.8 K/uL (2.5-16.5); LYMPHOCYTES % (AUTO) 11.1 % (20.5-51.1); MEAN CORPUSCULAR HEMOGLOBIN 30 pg (27-31); MEAN CORPUSCULAR HGB CONC 34 g/dL (33-37); MEAN CORPUSCULAR VOLUME 90.2 fL (80-94); MONOCYTES # (AUTO) 0.7 K/uL (0.8-1.0); MONOCYTES % (AUTO) 9.4 % (1.7-9.3); NEUTROPHILS # (AUTO) 5.6 K/uL (1.8-7.7); NEUTROPHILS % (AUTO) 77.8 % (42.2-75.2); PLATELET COUNT (AUTO) 274 K/uL (140-450); RED BLOOD CELL COUNT(AUTO) 4.12 MIL/uL (4.20-5.40); RED CELL DISTRIBUTION WIDTH 14.3 % (11.6-13.7); WHITE BLOOD COUNT (AUTO) 7.2 K/uL (4.8-10.8)
[2022-11-07 15:18] LABS: ALBUMIN 2.8 g/dL (3.4-5.0); ANION GAP 11.5 (8-16); ASPARTATE AMINOTRANSFERASE 22 U/L (15-37); CARBON DIOXIDE 29.5 mmol/L (21-32); CHLORIDE 107 mmol/L (98-107); CREATININE 1.1 mg/dL (0.6-1.3); GLUCOSE 114 mg/dL (74-106); SODIUM SERUM 144 mmol/L (136-145); TOTAL BILIRUBIN 0.4 mg/dL (0.0-1.0); UREA NITROGEN, BLOOD 16 mg/dL (7-18)
[2022-11-07 15:35] VITALS: BP 122/58
--- NOTE | 2022-11-07 16:08 | NUR ---
PT DENIES ONGOING SERINA NOR OTHER SYMPTOMS, VSS. PT UP FOR DISCHARGE, AWAITING TRANSPORT.
--- NOTE | 2022-11-07 16:59 | NUR ---
PT ATE A SANDWICH, RESTING IN BED NOW, AWAITING TRANSPORT.
--- NOTE | 2022-11-07 18:00 | NUR ---
[facility] AT BEDSIDE
--- NOTE | 2022-11-07 18:06 | NUR ---
Patient discharged with v/s stable. Written and verbal after care instructions FOR FALL PREVENTION IN THE HOME given and explained. Patient verbalized understanding. [facility] to snf. All questions addressed prior to discharge. Advised to follow up with PMD.
== END 2022-11-07 18:06 ==
LOC: MED 13:28
DX: S09.90XA Unspecified injury of head, initial encounter (principal); F03.90 Unspecified dementia, unspecified severity, without behavioral disturbance, psychotic disturbance, mood disturbance, and anxiety; E03.9 Hypothyroidism, unspecified; I10 Essential (primary) hypertension; Z79.899 Other long term (current) drug therapy; W18.30XA Fall on same level, unspecified, initial encounter; Y93.89 Activity, other specified; Y92.89 Other specified places as the place of occurrence of the external cause; Y99.8 Other external cause status
CPT/HCPCS: 36415; 70450; 72125; 72170; 80053; 84484; 85025; 93005; 99285; Q0092

== ENCOUNTER 2022-11-21 11:29 | Inpatient (IN) | payer OTHER, MEDICAID ==
[~2022-11-21] VITALS: Ht 165.1 cm; Wt 70.3 kg
[2022-11-21 11:34] VITALS: BP 113/53
[2022-11-21] MEDS ORDERED: NACL 0.9% 500 ML IV ONE (11:50)
[2022-11-21 13:13] LABS: BASOPHILS # (AUTO) 0.1 K/uL (0.00-0.22); BASOPHILS % (AUTO) 0.9 % (0.0-2.0); EOSINOPHILS # (AUTO) 0.1 K/uL (0-0.4); EOSINOPHILS % (AUTO) 1.5 % (0.0-4.0); HEMATOCRIT 39.7 % (36-48); HEMOGLOBIN 13.2 g/dL (12.0-16.0); LYMPHOCYTES # (AUTO) 1.1 K/uL (2.5-16.5); LYMPHOCYTES % (AUTO) 17.1 % (20.5-51.1); MEAN CORPUSCULAR HEMOGLOBIN 30 pg (27-31); MEAN CORPUSCULAR HGB CONC 33 g/dL (33-37); MEAN CORPUSCULAR VOLUME 91.6 fL (80-94); MONOCYTES # (AUTO) 0.6 K/uL (0.8-1.0); MONOCYTES % (AUTO) 10.1 % (1.7-9.3); NEUTROPHILS # (AUTO) 4.4 K/uL (1.8-7.7); NEUTROPHILS % (AUTO) 70.4 % (42.2-75.2); PLATELET COUNT (AUTO) 239 K/uL (140-450); RED BLOOD CELL COUNT(AUTO) 4.34 MIL/uL (4.20-5.40); RED CELL DISTRIBUTION WIDTH 14.4 % (11.6-13.7); WHITE BLOOD COUNT (AUTO) 6.3 K/uL (4.8-10.8)
[2022-11-21 13:40] LABS: ASPARTATE AMINOTRANSFERASE 21 U/L (15-37); CARBON DIOXIDE 31.3 mmol/L (21-32); CHLORIDE 108 mmol/L (98-107); CREATININE 1.3 mg/dL (0.6-1.3); GLUCOSE 123 mg/dL (74-106); POTASSIUM 4.3 mmol/L (3.5-5.1); SODIUM SERUM 145 mmol/L (136-145); TOTAL BILIRUBIN 0.4 mg/dL (0.0-1.0); UREA NITROGEN, BLOOD 24 mg/dL (7-18)
[2022-11-21] MEDS ORDERED: NACL 0.9% 1,000 ML IV ONE (15:05)
[2022-11-21] MEDS ORDERED: LORazepam 2 MG/ML VIAL ONE (16:54)
[2022-11-21] MEDS ORDERED: LORazepam 2 MG/ML VIAL IVP ONE (16:55)
[2022-11-21] MEDS ORDERED: QUEtiapine FUMARATE 25 MG TAB PO ONE (16:55)
[2022-11-21] MEDS ORDERED: QUEtiapine FUMARATE 25 MG TAB ONE (16:59)
[2022-11-21 17:15] LABS: APPEARANCE,URINE CLEAR (CLEAR); BILIRUBIN,URINE NEGATIVE (NEGATIVE); BLOOD, URINE NEGATIVE (NEGATIVE); COLOR,URINE YELLOW (YELLOW); LEUKOCYTE ESTERASE ,URINE TRACE (NEGATIVE); NITRITE, URINE NEGATIVE (NEGATIVE); PH,URINE 7.5 (5.0-9.0); UGLUCOSE NEGATIVE (NEGATIVE)
[2022-11-21 17:38] LABS: RBC,URINE 0-5 /HPF (0-5)
[2022-11-21] MEDS ORDERED: cefTRIAXone 1,000 MG VIAL ONE (17:43)
[2022-11-21] MEDS ORDERED: ONDANSETRON 4 MG/2 ML VIAL IVP PRN (18:00)
[2022-11-21] MEDS ORDERED: HYDROcodone/APAP 5/325 MG 1 TAB TAB PO PRN ×2 (18:00)
[2022-11-21] MEDS ORDERED: RENAL DOSING PER PHARMACY MC PRN (18:10)
[2022-11-21] MEDS ORDERED: DONEPEZIL 10 MG TAB PO SCH (21:00)
[2022-11-21] MEDS ORDERED: FAMOTIDINE 20 MG TAB PO SCH (21:00)
[2022-11-22] VITALS: BP 129/52
[2022-11-22 06:44] LABS: BASOPHILS # (AUTO) 0.1 K/uL (0.00-0.22); BASOPHILS % (AUTO) 1.1 % (0.0-2.0); EOSINOPHILS # (AUTO) 0.1 K/uL (0-0.4); EOSINOPHILS % (AUTO) 1.5 % (0.0-4.0); HEMATOCRIT 37.7 % (36-48); HEMOGLOBIN 12.6 g/dL (12.0-16.0); LYMPHOCYTES # (AUTO) 1.4 K/uL (2.5-16.5); LYMPHOCYTES % (AUTO) 22.5 % (20.5-51.1); MEAN CORPUSCULAR HEMOGLOBIN 31 pg (27-31); MEAN CORPUSCULAR HGB CONC 33 g/dL (33-37); MEAN CORPUSCULAR VOLUME 91.7 fL (80-94); MONOCYTES # (AUTO) 0.8 K/uL (0.8-1.0); MONOCYTES % (AUTO) 12.4 % (1.7-9.3); NEUTROPHILS % (AUTO) 62.5 % (42.2-75.2); PLATELET COUNT (AUTO) 266 K/uL (140-450); RED BLOOD CELL COUNT(AUTO) 4.11 MIL/uL (4.20-5.40); RED CELL DISTRIBUTION WIDTH 14.6 % (11.6-13.7); WHITE BLOOD COUNT (AUTO) 6.4 K/uL (4.8-10.8)
[2022-11-22 07:11] LABS: ANION GAP 12.4 (8-16); CARBON DIOXIDE 24.9 mmol/L (21-32); CHLORIDE 109 mmol/L (98-107); CREATININE 0.8 mg/dL (0.6-1.3); GLUCOSE 99 mg/dL (74-106); POTASSIUM 4.3 mmol/L (3.5-5.1); SODIUM SERUM 142 mmol/L (136-145); UREA NITROGEN, BLOOD 22 mg/dL (7-18)
[2022-11-22] MEDS ORDERED: LORazepam 2 MG/ML VIAL ONE (07:58)
[2022-11-22 08:00] VITALS: BP 129/69
[2022-11-22] MEDS ORDERED: LORazepam 2 MG/ML VIAL IM/IVP SCH (08:03)
[2022-11-22] MEDS ORDERED: ENOXAPARIN 40 MG/0.4 ML SYR SUBQ SCH (09:00)
[2022-11-22] MEDS ORDERED: LOSARTAN 25 MG TAB PO SCH (09:00)
[2022-11-22] MEDS ORDERED: ASPIRIN 81 MG TAB.CHEW PO SCH (09:00)
[2022-11-22] MEDS ORDERED: ESCITALOPRAM 20 MG TAB PO SCH (09:00)
[2022-11-22] MEDS ORDERED: MEMANTINE 10 MG TAB PO SCH (09:00)
[2022-11-22] MEDS ORDERED: CEPH-588 PO (09:13)
== END 2022-11-22 10:10 | disposition home or self-care (01) | DRG 871 ==
LOC: MED 11:29 → MMU 18:01 → MTU 19:11
PROVIDERS: ADMIT Internal Medicine; ATTEND Internal Medicine
DX: A41.9 Sepsis, unspecified organism (principal); G93.41 Metabolic encephalopathy; N39.0 Urinary tract infection, site not specified; E87.20 Acidosis, unspecified; Z20.822 Contact with and (suspected) exposure to COVID-19; E86.0 Dehydration; E11.9 Type 2 diabetes mellitus without complications; Z88.0 Allergy status to penicillin; I95.9 Hypotension, unspecified
CPT/HCPCS: 36415; 71045; 80048; 80053; 81001; 83605; 83735; 83880; 84484; 85025; 87040; 87086; 93005; 96361; 96365; 96375; 99291; J0696; J1650; J2060; J7030; J7060; Q0092

== ENCOUNTER 2022-11-27 07:55 | Emergency (ER) | payer OTHER, MEDICAID ==
[~2022-11-27] VITALS: Ht 160 cm; Wt 68.0 kg
[~2022-11-27 07:55] MED LIST changes: +CEPH-588 PO
[2022-11-27 07:57] VITALS: BP 116/78
--- NOTE | 2022-11-27 08:11 | NUR ---
08:00 [facility], BLS , BROUGHT PATIENT TO BED 07
--- NOTE | 2022-11-27 08:19 | NUR ---
Pt bib bls for "flu like symptoms". Pt denies pain, fever, cough, or any issues on arrival. Pt is a/o x 2 (person, place only. said to be normal for pt), vss, no ss of acute distress, breathing equal and unlabored, speech clear, no complaints at this time. Pt in bed 7 in view of nursing station.
[2022-11-27] MEDS ORDERED: QUEtiapine FUMARATE 25 MG TAB PO ONE (08:40)
[2022-11-27 09:25] LABS: ALBUMIN 3.4 g/dL (3.4-5.0); ANION GAP 14.3 (8-16); ASPARTATE AMINOTRANSFERASE 17 U/L (15-37); CARBON DIOXIDE 23.9 mmol/L (21-32); CHLORIDE 105 mmol/L (98-107); CREATININE 1.4 mg/dL (0.6-1.3); GLUCOSE 102 mg/dL (74-106); POTASSIUM 4.2 mmol/L (3.5-5.1); SODIUM SERUM 139 mmol/L (136-145); TOTAL BILIRUBIN 0.5 mg/dL (0.0-1.0); UREA NITROGEN, BLOOD 26 mg/dL (7-18)
[2022-11-27 10:19] LABS: BASOPHILS % (AUTO) 0.8 % (0.0-2.0); EOSINOPHILS % (AUTO) 0.8 % (0.0-4.0); HEMOGLOBIN 11.7 g/dL (12.0-16.0); LYMPHOCYTES # (AUTO) 0.7 K/uL (2.5-16.5); LYMPHOCYTES % (AUTO) 14.4 % (20.5-51.1); MEAN CORPUSCULAR HEMOGLOBIN 30 pg (27-31); MEAN CORPUSCULAR HGB CONC 33 g/dL (33-37); MEAN CORPUSCULAR VOLUME 90.5 fL (80-94); MONOCYTES # (AUTO) 0.8 K/uL (0.8-1.0); MONOCYTES % (AUTO) 15.6 % (1.7-9.3); NEUTROPHILS # (AUTO) 3.5 K/uL (1.8-7.7); NEUTROPHILS % (AUTO) 68.4 % (42.2-75.2); PLATELET COUNT (AUTO) 246 K/uL (140-450); RED BLOOD CELL COUNT(AUTO) 3.86 MIL/uL (4.20-5.40); RED CELL DISTRIBUTION WIDTH 14.5 % (11.6-13.7); WHITE BLOOD COUNT (AUTO) 5.1 K/uL (4.8-10.8)
--- NOTE | 2022-11-27 10:19 | NUR ---
UA labeled and sent to lab.
[2022-11-27 10:26] LABS: APPEARANCE,URINE CLEAR (CLEAR); BILIRUBIN,URINE NEGATIVE (NEGATIVE); BLOOD, URINE NEGATIVE (NEGATIVE); COLOR,URINE YELLOW (YELLOW); LEUKOCYTE ESTERASE ,URINE 3+ (NEGATIVE); NITRITE, URINE NEGATIVE (NEGATIVE); UGLUCOSE NEGATIVE (NEGATIVE)
[2022-11-27 10:37] LABS: RBC,URINE 0-5 /HPF (0-5)
[2022-11-27] MEDS ORDERED: CEPH-588 PO (10:44)
[2022-11-27] MEDS ORDERED: cephALEXin 500 MG CAP PO ONE (10:45)
--- NOTE | 2022-11-27 10:54 | NUR ---
MD spoke with pt and gave order for dc. [place] scheduled ambulance [facility] picker. Earliest available is 1400.
--- NOTE | 2022-11-27 11:47 | NUR ---
11:47 TELE PSYCH CONSULT AT BEDSIDE
--- NOTE | 2022-11-27 12:08 | NUR ---
Spoke with rep from [facility]. Report given and eta for trans.
--- NOTE | 2022-11-27 14:23 | NUR ---
Pt resting in bed. No complaints at this time. Pt immediately takes vitals equipment off when I leave the room.
--- NOTE | 2022-11-27 14:24 | NUR ---
Pt a/o x 2, vss, no ss of acute distress, breathing equal and unlabored, speech clear.
--- NOTE | 2022-11-27 15:39 | NUR ---
[facility] AT [facility]
[2022-11-27 15:59] VITALS: BP 130/79
--- NOTE | 2022-11-27 16:00 | NUR ---
ACS give to EMT transporter. Pt is a/ox 2, vss (with note to hr), speech clear, no ss of acute distress, breathing equal and unlabored. Report given to Bertram at [facility].
== END 2022-11-27 15:59 | disposition home or self-care (01) ==
LOC: MED 07:55
DX: R45.1 Restlessness and agitation (principal); N39.0 Urinary tract infection, site not specified; Z20.822 Contact with and (suspected) exposure to COVID-19; I10 Essential (primary) hypertension; G30.9 Alzheimer's disease, unspecified; F02.80 Dementia in other diseases classified elsewhere, unspecified severity, without behavioral disturbance, psychotic disturbance, mood disturbance, and anxiety; Z79.899 Other long term (current) drug therapy; Z79.82 Long term (current) use of aspirin; Z79.2 Long term (current) use of antibiotics; Z88.0 Allergy status to penicillin
CPT/HCPCS: 36415; 71045; 80053; 81001; 85025; 87086; 99285

== ENCOUNTER 2023-01-18 09:50 | Emergency (ER) | payer OTHER, MEDICAID ==
[~2023-01-18] VITALS: Ht 162.6 cm; Wt 59.0 kg
--- NOTE | 2023-01-18 09:50 | NUR ---
BIBA BLS TO ER BED 7
[2023-01-18 10:03] VITALS: BP 114/54; PULSE 72; RESP 20; O2SAT 100
[2023-01-18 10:11] VITALS: O2SAT 100
--- NOTE | 2023-01-18 10:22 | NUR ---
77 y/o female delrodney jie [facility] for c/o fall. Per EMS, patient has a history of falls. Patient fell today around 0800. Denies any LOC or pain. Patient is noted with old bruising to left cheek and toes. Patient is also noted with a lump to left elbow. Medical History: Dementia, Glaucoma, Osteoporisis ALLERGY: PENICILLIN
--- NOTE | 2023-01-18 10:30 | NUR ---
Patient was taken to CT via [facility].
--- NOTE | 2023-01-18 10:44 | NUR ---
Patient returned from CT
--- NOTE | 2023-01-18 10:49 | NUR ---
Patient being evaluated by physician at bedside.
--- NOTE | 2023-01-18 11:54 | NUR ---
Spoke to Marva Med Tech at [facility] to give report and set up transportation, potato picker will be at 12:15.
--- NOTE | 2023-01-18 12:27 | NUR ---
Patient discharged with v/s stable. Written and verbal after care instructions given. Patient verbalized understanding. Wheel Chair Assisted with to car. All questions addressed prior to discharge. Advised to follow up with PMD.
[2023-01-18 12:28] VITALS: BP 101/48; PULSE 68; RESP 13; O2SAT 100
--- NOTE | 2023-01-18 12:57 | NUR ---
The patient's care was reviewed and supervised by HUBERT SHEPARD RN.
== END 2023-01-18 12:27 | disposition home or self-care (01) ==
LOC: MED 09:50
DX: S00.12XA Contusion of left eyelid and periocular area, initial encounter (principal); E04.1 Nontoxic single thyroid nodule; F03.90 Unspecified dementia, unspecified severity, without behavioral disturbance, psychotic disturbance, mood disturbance, and anxiety; I10 Essential (primary) hypertension; Z88.0 Allergy status to penicillin; Z79.899 Other long term (current) drug therapy; W18.30XA Fall on same level, unspecified, initial encounter; Y93.89 Activity, other specified; Y92.89 Other specified places as the place of occurrence of the external cause; Y99.8 Other external cause status
CPT/HCPCS: 70450; 72125; 93005; 99284

== ENCOUNTER 2023-01-24 09:47 | Inpatient (IN) | payer OTHER, MEDICAID ==
[~2023-01-24] VITALS: Ht 162.6 cm; Wt 75.7 kg
[2023-01-24 09:48] VITALS: BP 114/70; PULSE 88; RESP 17; TEMP 97.4; O2SAT 97
[2023-01-24 10:01] VITALS: O2SAT 98
[2023-01-24 10:42] LABS: APPEARANCE,URINE CLEAR (CLEAR); BILIRUBIN,URINE NEGATIVE (NEGATIVE); BLOOD, URINE NEGATIVE (NEGATIVE); COLOR,URINE YELLOW (YELLOW); LEUKOCYTE ESTERASE ,URINE TRACE (NEGATIVE); NITRITE, URINE NEGATIVE (NEGATIVE); PROTEIN,URINE TRACE (NEGATIVE); UGLUCOSE NEGATIVE (NEGATIVE); UROBILINOGEN,URINE 0.2 EU/dL (0.2 - 1)
[2023-01-24] MEDS ORDERED: OLANZapine 10 MG VIAL IM ONE ×2 (10:45→13:45)
[2023-01-24 10:52] LABS: BACTERIA,URINE 0-2 /HPF (None Seen); RBC,URINE 0-5 /HPF (0-5); SQUAMOUS EPITHELIAL CELL,UR 50-80 /LPF (0-3 (FEW)); WBC,URINE 0-5 /HPF (0-5)
[2023-01-24 10:57] LABS: BASOPHILS % (AUTO) 0.7 % (0.0-2.0); EOSINOPHILS # (AUTO) 0.1 K/uL (0-0.4); EOSINOPHILS % (AUTO) 1.8 % (0.0-4.0); HEMATOCRIT 35.6 % (36-48); HEMOGLOBIN 11.9 g/dL (12.0-16.0); LYMPHOCYTES # (AUTO) 1.5 K/uL (2.5-16.5); LYMPHOCYTES % (AUTO) 23.7 % (20.5-51.1); MEAN CORPUSCULAR HEMOGLOBIN 30 pg (27-31); MEAN CORPUSCULAR HGB CONC 33 g/dL (33-37); MONOCYTES % (AUTO) 16.2 % (1.7-9.3); NEUTROPHILS # (AUTO) 3.6 K/uL (1.8-7.7); NEUTROPHILS % (AUTO) 57.6 % (42.2-75.2); PLATELET COUNT (AUTO) 233 K/uL (140-450); RED BLOOD CELL COUNT(AUTO) 3.92 MIL/uL (4.20-5.40); RED CELL DISTRIBUTION WIDTH 14.2 % (11.6-13.7); WHITE BLOOD COUNT (AUTO) 6.2 K/uL (4.8-10.8)
[2023-01-24 11:28] LABS: ACETAMINOPHEN < 0.5 ug/ml (10-30); ALANINE AMINOTRANSFERASE 15 U/L (12-78); ALBUMIN 3.3 g/dL (3.4-5.0); ALCOHOL, BLOOD < 3 mg/dL (<10); ALKALINE PHOSPHATASE 111 U/L (50-136); ANION GAP 13.5 (8-16); ASPARTATE AMINOTRANSFERASE 19 U/L (15-37); CALCIUM 9.2 mg/dL (8.5-10.1); CARBON DIOXIDE 27.9 mmol/L (21-32); CHLORIDE 106 mmol/L (98-107); CREATINE KINASE, TOTAL 52 U/L (26-192); CREATININE 1.2 mg/dL (0.6-1.3); GLUCOSE 94 mg/dL (74-106); LIPASE 75 U/L (73-393); POTASSIUM 4.4 mmol/L (3.5-5.1); SALICYLATE < 2.8 mg/dL (2.8-20.0); SODIUM SERUM 143 mmol/L (136-145); TOTAL BILIRUBIN 0.3 mg/dL (0.0-1.0); TOTAL PROTEIN, SERUM 7.6 g/dL (6.4-8.2); UREA NITROGEN, BLOOD 30 mg/dL (7-18)
[2023-01-24 17:45] VITALS: BP 149/68; PULSE 62; RESP 18; TEMP 98; O2SAT 99
[2023-01-24 18:19] VITALS: PULSE 68; RESP 20; O2SAT 99
[2023-01-24 20:00] VITALS: BP 156/50; PULSE 82; RESP 18; TEMP 97.5; O2SAT 100
[2023-01-24] MEDS ORDERED: cefTRIAXone 1,000 MG VIAL ONE (20:18)
[2023-01-24] MEDS: traZODone 50 MG TAB PO SCH (20:29)
[2023-01-24] MEDS: OLANZapine 2.5 MG TAB PO SCH (20:29)
[2023-01-24] MEDS: NACL 0.9% 1,000 ML IV SCH (20:29)
[2023-01-25 04:00] VITALS: BP 151/54; PULSE 80; RESP 17; TEMP 96.7; O2SAT 98
[2023-01-25 07:48] VITALS: PULSE 83; RESP 19; O2SAT 98
[2023-01-25 08:00] VITALS: BP 143/78; PULSE 72; RESP 16; TEMP 97.8; O2SAT 98
[2023-01-25] MEDS: OLANZapine 2.5 MG TAB PO SCH ×2 (08:59→17:52)
[2023-01-25] MEDS: traZODone 50 MG TAB PO SCH ×2 (08:59→20:05)
[2023-01-25] MEDS: NACL 0.9% 1,000 ML IV SCH ×2 (09:00→21:15)
[2023-01-25 09:56] LABS: BASOPHILS % (AUTO) 1.1 % (0.0-2.0); EOSINOPHILS # (AUTO) 0.2 K/uL (0-0.4); EOSINOPHILS % (AUTO) 4.7 % (0.0-4.0); HEMATOCRIT 38.1 % (36-48); HEMOGLOBIN 12.6 g/dL (12.0-16.0); LYMPHOCYTES % (AUTO) 25.4 % (20.5-51.1); MEAN CORPUSCULAR HEMOGLOBIN 30 pg (27-31); MEAN CORPUSCULAR HGB CONC 33 g/dL (33-37); MEAN CORPUSCULAR VOLUME 91.6 fL (80-94); MONOCYTES # (AUTO) 0.4 K/uL (0.8-1.0); MONOCYTES % (AUTO) 11.3 % (1.7-9.3); NEUTROPHILS # (AUTO) 2.3 K/uL (1.8-7.7); NEUTROPHILS % (AUTO) 57.5 % (42.2-75.2); PLATELET COUNT (AUTO) 218 K/uL (140-450); RED BLOOD CELL COUNT(AUTO) 4.16 MIL/uL (4.20-5.40); RED CELL DISTRIBUTION WIDTH 13.8 % (11.6-13.7)
[2023-01-25 10:02] LABS: ANION GAP 11.7 (8-16); CALCIUM 8.4 mg/dL (8.5-10.1); CARBON DIOXIDE 27.3 mmol/L (21-32); CHLORIDE 109 mmol/L (98-107); CREATININE 0.9 mg/dL (0.6-1.3); GLUCOSE 185 mg/dL (74-106); SODIUM SERUM 144 mmol/L (136-145); UREA NITROGEN, BLOOD 16 mg/dL (7-18)
[2023-01-25] MEDS ORDERED: DEXTROSE 50% 50 ML SYR IVP PRN (11:05)
[2023-01-25] MEDS ORDERED: INSULIN LISPRO SLIDING SCALE 100 UNITS/ML VIAL SUBQ PRN (11:05)
[2023-01-25 16:00] VITALS: BP 145/60; PULSE 70; RESP 17; TEMP 97.9; O2SAT 98
[2023-01-25 20:00] VITALS: PULSE 77; RESP 18; O2SAT 99
[2023-01-26] MEDS: HALOPERIDOL IM 5 MG/ML VIAL IM PRN ×2 (02:30→16:25)
[2023-01-26 04:00] VITALS: BP 149/64; PULSE 74; RESP 18; TEMP 96.9; O2SAT 95
[2023-01-26 07:46] VITALS: PULSE 78; RESP 20; O2SAT 99
[2023-01-26 08:00] VITALS: BP 139/56; PULSE 72; PULSE 75; RESP 18; TEMP 97.6; O2SAT 95
[2023-01-26] MEDS: OLANZapine 2.5 MG TAB PO SCH ×3 (08:39→17:35)
[2023-01-26] MEDS ORDERED: cefTRIAXone 1,000 MG in LIDOCAINE MPF 1% 2.1 ML IM SCH ×2 (13:00→14:15)
[2023-01-26] MEDS ORDERED: LIDOCAINE MPF 1% 0 ML ONE (14:12)
[2023-01-26] MEDS ORDERED: cefTRIAXone 1,000 MG VIAL ONE ×5 (14:12→21:28)
[2023-01-26] MEDS ORDERED: LIDOCAINE MPF 1% 5 ML ONE ×3 (14:24→21:28)
[2023-01-26 16:00] VITALS: BP 125/65; PULSE 68; PULSE 78; RESP 18; TEMP 98.4; O2SAT 95
[2023-01-26] MEDS ORDERED: LORazepam 2 MG/ML VIAL IM STA (16:27)
[2023-01-26] MEDS ORDERED: diphenhydrAMINE 50 MG/ML VIAL IM STA (16:27)
[2023-01-26] MEDS: diphenhydrAMINE 50 MG/ML VIAL ONE (16:44)
[2023-01-26] MEDS: LORazepam 2 MG/ML VIAL ONE (16:44)
[2023-01-26 20:00] VITALS: BP 143/65; PULSE 96; RESP 18; TEMP 97.7; O2SAT 95
[2023-01-26] MEDS: cefTRIAXone 1,000 MG in LIDOCAINE MPF 1% 2.1 ML IM SCH (21:48)
[2023-01-26] MEDS: traZODone 50 MG TAB PO SCH (21:55)
[2023-01-27 04:00] VITALS: BP 140/65; PULSE 72; RESP 18; TEMP 97.2; O2SAT 98
[2023-01-27 06:01] LABS: BASOPHILS % (AUTO) 0.9 % (0.0-2.0); EOSINOPHILS # (AUTO) 0.1 K/uL (0-0.4); HEMATOCRIT 33.1 % (36-48); HEMOGLOBIN 11.3 g/dL (12.0-16.0); LYMPHOCYTES # (AUTO) 1.5 K/uL (2.5-16.5); LYMPHOCYTES % (AUTO) 33.8 % (20.5-51.1); MEAN CORPUSCULAR HEMOGLOBIN 31 pg (27-31); MEAN CORPUSCULAR HGB CONC 34 g/dL (33-37); MEAN CORPUSCULAR VOLUME 90.8 fL (80-94); MONOCYTES # (AUTO) 0.6 K/uL (0.8-1.0); MONOCYTES % (AUTO) 12.7 % (1.7-9.3); NEUTROPHILS # (AUTO) 2.2 K/uL (1.8-7.7); NEUTROPHILS % (AUTO) 50.6 % (42.2-75.2); PLATELET COUNT (AUTO) 209 K/uL (140-450); RED BLOOD CELL COUNT(AUTO) 3.65 MIL/uL (4.20-5.40); RED CELL DISTRIBUTION WIDTH 13.8 % (11.6-13.7); WHITE BLOOD COUNT (AUTO) 4.4 K/uL (4.8-10.8)
[2023-01-27 06:45] LABS: ANION GAP 13.8 (8-16); CALCIUM 8.6 mg/dL (8.5-10.1); CARBON DIOXIDE 26.1 mmol/L (21-32); CHLORIDE 107 mmol/L (98-107); CREATININE 0.9 mg/dL (0.6-1.3); GLUCOSE 101 mg/dL (74-106); POTASSIUM 3.9 mmol/L (3.5-5.1); SODIUM SERUM 143 mmol/L (136-145); UREA NITROGEN, BLOOD 17 mg/dL (7-18)
[2023-01-27 08:00] VITALS: PULSE 78; RESP 18; O2SAT 98
[2023-01-27] MEDS ORDERED: LIDOCAINE MPF 1% 5 ML ONE ×2 (08:27→09:46)
[2023-01-27] MEDS ORDERED: cefTRIAXone 1,000 MG VIAL ONE ×2 (09:46)
[2023-01-27] MEDS: cefTRIAXone 1,000 MG in LIDOCAINE MPF 1% 2.1 ML IM SCH (09:49)
[2023-01-27] MEDS: OLANZapine 2.5 MG TAB PO SCH ×2 (09:51→15:38)
[2023-01-27 16:00] VITALS: BP 113/41; PULSE 75; RESP 18; TEMP 96.9; O2SAT 99
[2023-01-27 16:04] VITALS: BP 113/41; PULSE 75; RESP 18; TEMP 96.9
== END 2023-01-27 16:35 | DRG 640 ==
LOC: MED 09:47 → MMU 14:45 → MTU 16:12
PROVIDERS: ADMIT Student in an Organized Health Care Education/Training Program; ATTEND Student in an Organized Health Care Education/Training Program
DX: E86.0 Dehydration (principal); G93.41 Metabolic encephalopathy; E44.1 Mild protein-calorie malnutrition; F03.90 Unspecified dementia, unspecified severity, without behavioral disturbance, psychotic disturbance, mood disturbance, and anxiety; E78.5 Hyperlipidemia, unspecified; F31.9 Bipolar disorder, unspecified; R79.89 Other specified abnormal findings of blood chemistry; Z88.0 Allergy status to penicillin; Z79.899 Other long term (current) drug therapy; Z68.28 Body mass index [BMI] 28.0-28.9, adult
CPT/HCPCS: 36415; 70450; 80048; 80053; 81001; 82140; 82550; 83690; 83735; 84100; 84443; 84484; 85025; 87081; 92526; 93005; 96372; 97116; 97530; 99285; G0480; G0482; J0696; J1200; J1630; J1815; J2001; J2060; J3490; J7060